=== PATIENT | female | born 1945 | race Caucasian/White ===

== ENCOUNTER → 2023-12-27 14:36 | Outpatient (REF) | payer OTHER, SELFPAY | LOC: WDC 14:36 | PROVIDERS: ATTENDING PHYSICIAN Family Medicine Geriatric Medicine; FAMILY PHYSICIAN Internal Medicine | DX: Z12.31 Encounter for screening mammogram for malignant neoplasm of breast (principal) | CPT/HCPCS: 77063; 77067 ==

== ENCOUNTER 2024-03-19 23:55 | Inpatient (IN) | payer OTHER, SELFPAY ==
[2024-03-19 22:03] VITALS: BP 148/96
[2024-03-19] MEDS: TYLENOL 650 MG PO (22:12)
[2024-03-19 22:20] VITALS: BMI 31.6
[2024-03-19 22:36] LABS: % Basophils 1.3 % (0-2); % Eosinophils 2.9 % (0-6); % Immature Granulocytes 0.5 % (0-0.5); % Lymphocytes 27.9 % (20.5-51.1); % Monocytes 7.3 % (1.7-9.3); % Neutrophils 60.1 % (42.2-75.2); Absolute Basophils 0.1 10^3/uL (0-0.2); Absolute Eosinophils 0.2 10^3/uL (0-0.7); Absolute Lymphocytes 2.1 10^3/uL (1.2-3.4); Absolute Monocytes 0.6 10^3/uL (0.1-0.6); Absolute Neutrophils 4.6 10^3/uL (1.4-6.5); Hematocrit 44.9 % (37.0-47.0); Hemoglobin 14.7 g/dL (12.0-16.0); Mean Corp Hgb Conc. 32.7 g/dL (33.0-37.0); Mean Corpuscular Hgb 28.6 pg (27.0-31.0); Mean Corpuscular Volume 87.4 fL (81.0-99.0); Mean Platelet Volume 10.1 fL (7.4-10.4); Nucleated Red Blood Cells % 0 %; Platelet Count 222 10^3/uL (130-400); Red Blood Cell Count 5.14 10^6/uL (4.20-5.40); Red Cell Dist. Width 14.6 % (11.5-14.5); White Blood Cell Count 7.7 10^3/uL (4.8-10.8)
--- NOTE | 2024-03-19 22:36 | ED.GENMED ---
History of Present Illness
<Tila Wills PA-C - Last Filed: 03/20/24 00:24>
General
Chief Complaint: Fall
Source: patient
Exam Limitations: none
Time Seen by Provider: 03/19/24 21:58
Nursing documentation reviewed up to this point in time: agreed with
History of Present Illness
History of Present Illness:
Patient is a 78-year-old female with history hypertension presenting to the emergency department via EMS with left hip pain after mechanical fall just prior to arrival. Patient states she was hanging a curtain when she missed the last 2 steps of a
ladder falling on her left side. Patient having significant pain in her left hip with any movement. There was no head strike or loss of consciousness. Patient has been unable to bear any weight since fall. Patient denies any pain in upper
extremities or right lower extremity. No numbness/tingling in left lower extremity. No headache or neck pain. No chest pain or shortness of breath
Patient on any blood thinners
Review of Systems
<Tila Wills PA-C - Last Filed: 03/20/24 00:24>
Review of Systems
Allergies reviewed?: Yes
All Other Systems: ROS reviewed and negative except as documented in HPI and ROS
Phy Exam
<Tila Wills PA-C - Last Filed: 03/20/24 00:24>
Physical Exam
Physical Exam:
Vitals: Hypertensive, mildly tachycardic. Afebrile
General: Patient is mildly uncomfortable due to pain. Nontoxic appearing
Skin: Warm and dry, no rashes or lesions
Head: Normocephalic, atraumatic
Eyes: Sclera nonicteric. EOMs intact. No nystagmus.
Throat: Protecting airway
Neck: Normal ROM, no cervical spine tenderness, no meningismus
Cardiac: Regular rate and rhythm, no murmurs.
Pulm: Normal respiratory effort, no wheezes, rales, rhonchi heard on exam.
Abdomen: No abdominal tenderness.
Extremities: Very minimal shortening of left lower extremity. Significant pain with internal/external rotation of left hip. Tenderness at left greater trochanter. Left ankle and left knee atraumatic and nontender with full range of motion. Cap
refill within normal limits. Sensation fully intact. Right lower extremity atraumatic and nontender with full range of motion.
Neuro: AAOx3. CN II-XII intact. No focal neurologic deficits.
Psychiatric: Normal affect.
Course
<Tila Wills PA-C - Last Filed: 03/20/24 00:24>
Orders/Labs/Results
Orders:
Orders
03/19/24 22:05
Electrocardiogram (*1) Urgent
Reason for Study: Other
Other Reason for Exam: fall
EKG- Treatment ONCE
Acetaminophen [Tylenol] 650 mg PO NOW STA
Hip, Left 2-3 Views [CR Hip - LT w/wo Pel 2-3 Vw*] Urgent
Comment:
Reason For Exam: fall, left hip pain
Include a pelvis x-ray?: Yes
03/19/24 22:24
Complete Blood Count/With Diff Urgent
Comprehensive Metabolic Panel Urgent
03/19/24 23:54
Admit/Transfer Patient As Directed
Co-Sign Provider:
Level of Care: Inpatient admission
Assign to:: Medical/Surgical
Physician / Group: hospitalist
Diagnosis: left hip fracture
Reason for Hospitalization: hospitalist
Expected length of stay greater than two midnights?: Yes
ELOS- Estimated Length of Stay in days: 2
I certify the patient meets the requirements for IP care: Yes
PRN Pain Medication Management As Directed
May give lesser potent ordered pain med per pt: Yes
preference::
Protocol:: Medication orders for pain may be administered in a
manner that supports deferring to patient preference
when the pt is:
- Requesting an ordered lesser potent pain medication.
Least to most potent pain medications are defined
as: acetaminophen < NSAID < tramadol < opioids
(morphine, oxycodone, hydromorphone).
- Requesting a lesser dose of the same medication IF
ORDERED.
- Requesting a less intrusive route of administration
if both routes are prescribed by the provider (PO <
IV).
03/19/24 23:55
Code Status As Directed
Resuscitation Status: Full Code
Abnormal Lab Results
03/19/24
22:24
MCHC 32.7 L g/dL
(33.0-37.0)
RDW 14.6 H %
(11.5-14.5)
Glucose 124 H mg/dl
(70-99)
AST 38 H U/L
(14-36)
Alkaline Phosphatase 127 H U/L
(38-126)
03/19/24 22:24
03/19/24 22:24
Vital Signs
Initial and Last Documented VS:
Initial Vital Signs
Temp Pulse Resp Pulse Ox
99.0 F 100 16 97
03/19/24 21:58 03/19/24 21:58 03/19/24 21:58 03/19/24 21:58
Last Documented Vital Signs
Temp Pulse Resp BP Pulse Ox
99.0 F 110 23 139/95 96
03/19/24 21:58 03/19/24 23:08 03/19/24 23:08 03/19/24 23:08 03/19/24 23:08
<Sameer Langley DO - Last Filed: 03/19/24 23:35>
Orders/Labs/Results
Orders:
Orders
03/19/24 22:05
Electrocardiogram (*1) Urgent
Reason for Study: Other
Other Reason for Exam: fall
EKG- Treatment ONCE
Acetaminophen [Tylenol] 650 mg PO NOW STA
Hip, Left 2-3 Views [CR Hip - LT w/wo Pel 2-3 Vw*] Urgent
Comment:
Reason For Exam: fall, left hip pain
Include a pelvis x-ray?: Yes
03/19/24 22:24
Complete Blood Count/With Diff Urgent
Comprehensive Metabolic Panel Urgent
03/19/24 23:54
Admit/Transfer Patient As Directed
Co-Sign Provider:
Level of Care: Inpatient admission
Assign to:: Medical/Surgical
Physician / Group: hospitalist
Diagnosis: left hip fracture
Reason for Hospitalization: hospitalist
Expected length of stay greater than two midnights?: Yes
ELOS- Estimated Length of Stay in days: 2
I certify the patient meets the requirements for IP care: Yes
PRN Pain Medication Management As Directed
May give lesser potent ordered pain med per pt: Yes
preference::
Protocol:: Medication orders for pain may be administered in a
manner that supports deferring to patient preference
when the pt is:
- Requesting an ordered lesser potent pain medication.
Least to most potent pain medications are defined
as: acetaminophen < NSAID < tramadol < opioids
(morphine, oxycodone, hydromorphone).
- Requesting a lesser dose of the same medication IF
ORDERED.
- Requesting a less intrusive route of administration
if both routes are prescribed by the provider (PO <
IV).
03/19/24 23:55
Code Status As Directed
Resuscitation Status: Full Code
Abnormal Lab Results
03/19/24
22:24
MCHC 32.7 L g/dL
(33.0-37.0)
RDW 14.6 H %
(11.5-14.5)
Glucose 124 H mg/dl
(70-99)
AST 38 H U/L
(14-36)
Alkaline Phosphatase 127 H U/L
(38-126)
03/19/24 22:24
03/19/24 22:24
Vital Signs
Initial and Last Documented VS:
Initial Vital Signs
Temp Pulse Resp Pulse Ox
99.0 F 100 16 97
03/19/24 21:58 03/19/24 21:58 03/19/24 21:58 03/19/24 21:58
Last Documented Vital Signs
Temp Pulse Resp BP Pulse Ox
99.0 F 110 23 139/95 96
03/19/24 21:58 03/19/24 23:08 03/19/24 23:08 03/19/24 23:08 03/19/24 23:08
<Tila Wills PA-C - Last Filed: 03/20/24 00:24>
MDM/Problems Addressed
Differential Diagnosis Includes:
Not limited to: Hip fracture, hip contusion, pelvic fracture, etc.
MDM/Problems Addressed:
79-year-old female with left hip fracture following mechanical fall 1 hour [employer]. No head strike or loss of conscious. No other injury sustained. Patient mildly hypertensive, tachycardic otherwise stable vital signs. Patient afebrile. Physical
exam as above. No evidence of head or neck trauma. Pain with internal/external rotation of left hip with tenderness at left greater trochanter. Left lower extremity neurovascularly intact. No evidence of other extremity traumatic injury. X-ray
of left hip obtained which shows a nondisplaced intertrochanteric fracture of left proximal femur. Discussed with orthopedics. Patient not on thinners. Patient will be admitted to the hospitalist for likely OR tomorrow. Patient excepted to
hospitalist service in stable condition.
Chronic conditions affecting care:
Hypertension
Acute Exacerbation and/or Progression of Chronic Illness:
Acutely hypertensive
<Tila Wills PA-C - Last Filed: 03/20/24 00:24>
*Radiology
Radiology exam reviewed: preliminary read by ED provider (X-ray reviewed by me-intertrochanteric fracture of left femur) and radiology read reviewed
*Pulse Oximetry
Patient hypoxic: no
*EKG
Interpreted by ED Provider?: Yes
Interpretation: abnormal
Comparison EKG: changes noted
Heart Rate: 101
Rate: tachycardiac
Rhythm: sinus
Interval: normal QT interval
Ischemia: non-specific ST changes
*[place]lower Interpretation
Rate: Snow Blower- N/A
*Critical Care Note
Total Time (30-74mins, 75-104mins- exclusive of procedures): Not Applicable
<Tila Wills PA-C - Last Filed: 03/20/24 00:24>
Patient Management
Discussion with other providers: Hospitalist and Human Resources Partner (Orthopedics)
Escalation/DeEscalation of care consider admission/obs:
Admit indicated�plan likely OR tomorrow
ED Attending Note
<Tila Wills PA-C - Last Filed: 03/20/24 00:24>
-
Portions of this chart may have been created with voice recognition software.� Occasional wrong word or��sound alike� substitutions may have occurred due to the inherent limitations of voice recognition software.
<Sameer Langley DO - Last Filed: 03/19/24 23:35>
ED Attending Note
Patient seen and examined by attending physician: Yes
I performed the substantive portion of visit, reviewed & personally made and approve the management plan that is documented in note by myself or AMI.: Yes
ED Attending Note:
Left inter-troch fracture. Admit. Good perfusion
Discharge Plan
Departure
Patient Disposition: Admit
Date of Disposition: 03/19/24
Time of Disposition: 23:35
Presentation/result/management discussed w/ accepting MD/DO: Hospitalist
Patient with high blood pressure during this ER visit?: Yes
Condition: Good
Covid-19: Not Applicable
Discharge Problem:
Closed intertrochanteric fracture of left hip
Prescriptions:
No Action
glucosamine sulfate [Glucosamine] 500 mg Tablet
500 mg PO DAILY
Theragen Tablet
1 tab PO DAILY
amlodipine 5 mg Tablet
5 mg PO DAILY
cholecalciferol (vitamin D3) [Vitamin D3] 25 mcg (1,000 unit) Tablet
25 mcg PO DAILY
Referrals:
Violeta Guajardo MD [Family Provider] -
Discharge Date and Time
Print Language: BULGARIAN
[2024-03-19 22:54] LABS: ALT (SGPT) 26 U/L (0-35); AST (SGOT) 38 U/L (14-36); Albumin 4.7 g/dl (3.5-5.0); Alkaline Phosphatase 127 U/L (38-126); Blood Urea Nitrogen 13 mg/dl (7-17); Calcium 9.1 mg/dl (8.4-10.2); Carbon Dioxide 22 mmol/L (22-30); Chloride 103 mmol/L (98-107); Estimated Creatinine Clearance 79 ml/min; Glucose 124 mg/dl (70-99); Potassium 4.5 mmol/L (3.5-5.1); Sodium 137 mmol/L (135-145); Total Bilirubin 0.5 mg/dl (0.2-1.3); Total Protein 7.8 g/dl (6.3-8.2); eGFR > 60.00
[2024-03-19 23:08] VITALS: BP 139/95
--- NOTE | 2024-03-19 23:58 | HPS.HSE ---
Family Physician
-
Family Physician: Violeta Guajardo
Chief Complaint
-
Fall
History of Present Illness
This is a 78-year-old female with past medical history only significant for hypertension presents to the emergency department after suffering a fall with left hip pain.
Patient reported that she was coming down a ladder when she misjudged the last rung of the ladder and stepped out falling to the floor on the left side. She had significant pain immediately and was unable to move her hip. She denies striking her
head. She denied any other recent falls. Patient denies any difficulty with ambulation at baseline. She has not been able to bear weight since the fall earlier today. She denies any numbness or tingling in the lower extremities. She denies any
urinary symptoms. She called EMS and was brought to the emergent department.
In the emergency department she was afebrile, blood pressure was 130/90 with a pulse of 110 satting 98% on room air. CBC was unremarkable. Electrolytes BUN/creatinine were also unremarkable. Hip x-ray shows a left intertrochanteric displaced
fracture.
Medical History
Past Medical History
Past Medical History: Reports Cancer (Right breast cancer status post left lumpectomy) and HTN
Past Surgical History: Reports Other (Right breast cancer status postlumpectomy, right breast cyst removal)
Social History
Tobacco: Former Smoker
Alcohol: Occasional
Drug: None
Personal:
Living: With Family
Family History
Family History: Not pertinent
Allergies / Home Medications
Allergies reflects when Allergies were last updated in [facility].
Home Medications with original date entered in [facility]
Allergy/Medication List:
Allergies
Allergy/AdvReac Type Severity Reaction Status Date / Time
No Known Allergies Allergy Verified 03/19/24 22:15
Home Medications
amlodipine 5 mg tablet 5 mg PO DAILY 03/19/24
cholecalciferol (vitamin D3) 25 mcg (1,000 unit) tablet (Vitamin D3) 25 mcg PO DAILY 03/19/24
glucosamine sulfate 500 mg tablet (Glucosamine) 500 mg PO DAILY 03/19/24
therapeutic multivitamin 1 tab PO DAILY 03/19/24
Review of Systems
-
History Source: Patient
Constitutional: Reports No Symptoms
EENT: Reports No Symptoms
Respiratory: Reports No Symptoms
Cardiac: Reports No Symptoms
Abdomen/GI: Reports No Symptoms
: Reports No Symptoms
Musculoskeletal: Reports Joint Pain
Skin: Reports No Symptoms
Neurological: Reports No Symptoms
Endocrine: Reports No Symptoms
Hematologic/Lymphatic: Reports No Symptoms
Psych: Reports No Symptoms
Physical Exam
Vital Signs
Vital Signs
Temp Pulse Resp BP Pulse Ox
99.0 F 110 23 139/95 96
03/19/24 21:58 03/19/24 23:08 03/19/24 23:08 03/19/24 23:08 03/19/24 23:08
Physical Exam
General: Well Developed, Well Nourished, No Apparent Distress and Conversant
HEENT: NormoCephalic, Anicteric, Moist mucous membranes and Atraumatic
Respiratory: Clear
Cardiac: S1/S2 and Tachycardia
Breast: Deferred by me
GI: Soft, Non Tender, Non Distended and No Hepatosplenomegaly
Rectal: Deferred by Provider
Genito-urinary: Deferred by me
Musculoskeletal: No Clubbing, No Cyanosis and No Edema
Skin: Warm
Neuro: AO x 3 and Nonfocal/grossly intact
Hematologic/Lymphatic: No Lymphadenopathy
Psych: Calm
Laboratory Results
-
03/19/24 22:24
03/19/24 22:24
Laboratory Results
Total Bilirubin 0.5 mg/dl (0.2-1.3) 03/19/24 22:24
AST 38 U/L (14-36) H 03/19/24 22:24
ALT 26 U/L (0-35) 03/19/24 22:24
Alkaline Phosphatase 127 U/L (38-126) H 03/19/24 22:24
Data Reviewed
-
Diagnostic Radiology: Image Personally Visualized and interpreted and Report Reviewed by me
Lab Data: Labs Reviewed by me
Old Records: Reviewed
Impression/Plan
-
IMPRESSION:
Generally healthy 78-year-old female with past medical history of hypertension on amlodipine presents to the Emergency Department following a mechanical fall where she fell from the second rung of the ladder and suffered a left hip intertrochanteric
fracture.
PLAN:
Left Hip Fracture
- admit to med/surg
- NPO after midnight
- LR for now
- pain control and antiemetics
- PT OT
- ortho consult
HTN
- stable, continue amlodipine
DVT PPX - lovenox sq
Code status - full code
[2024-03-20] VITALS (11 sets, daily range): BP systolic 102–149; BP diastolic 67–93
[2024-03-20] MEDS: LR 500 IV (01:18)
[2024-03-20] MEDS: DILAUDID 0.25 MG IV (01:18)
[2024-03-20] MEDS: TYLENOL PO (01:19)
[2024-03-20] MEDS: COLACE PO ×2 (01:27→08:51)
[2024-03-20] MEDS: SENOKOT PO ×2 (01:27→08:51)
--- NOTE | 2024-03-20 01:33 | PTCARENOTE ---
Received pt from ED into room 2124. Pulled over to bed with assist x4. AAOx3. VSS. Complains of 8/10 L hip pain after movement. PRN pain medication administered, see APR. Pt resting comfortably in bed, no complaints at this time.
[2024-03-20] MEDS: TYLENOL 650 MG PO ×6 (03:34→23:17)
--- NOTE | 2024-03-20 06:31 | W.PN.UPDATE ---
Update Note
Progress Note Update
Full orthopedic consult dictated:
Dx: Left hip intertrochanteric fracture
Plan: ORIF left hip later today. NPO and ancef cutting and boning supervisor to OR. Hold Lovenox-foot pumps and ASA post-op. CBC this am and type & screen.
[2024-03-20 07:48] LABS: Hematocrit 43.9 % (37.0-47.0); Hemoglobin 14.5 g/dL (12.0-16.0); Mean Corpuscular Hgb 28.4 pg (27.0-31.0); Mean Corpuscular Volume 85.9 fL (81.0-99.0); Mean Platelet Volume 10.7 fL (7.4-10.4); Platelet Count 205 10^3/uL (130-400); Red Blood Cell Count 5.11 10^6/uL (4.20-5.40); Red Cell Dist. Width 14.4 % (11.5-14.5); White Blood Cell Count 12.4 10^3/uL (4.8-10.8)
[2024-03-20] MEDS: DILAUDID 0.5 MG IV ×2 (08:50→21:33)
[2024-03-20] MEDS: NORVASC 5 MG PO (08:50)
--- NOTE | 2024-03-20 11:34 | W.PN.HOSP.TC ---
Today's Communication/Plan
-
OR with orthopedics today
N.p.o. until after procedure
Nonweightbearing for now
As needed analgesia
Trend CBC
Assessment / Plan
Assessment / Plan
#Left intertrochanteric hip fracture
#Mechanical fall off a ladder
-Had mechanical fall while using ladder, fell onto hip and could not Ambulate
-X-ray here with evidence of left intertrochanteric fracture of the femur
-Evaluated by orthopedics today, plan for OR this afternoon
-Maintain n.p.o. status pending OR
-As needed analgesia, increased Dilaudid to 0.5
-Plan for aspirin full dose for 6 weeks as DVT prophylaxis
-Nonweightbearing now, per Ortho after OR today
-Trend CBC
#HTN
-No history of hypertensive systemic
-Home medications include amlodipine
-Blood pressure well-controlled despite
#Leukocytosis
-Reactive secondary to hip fracture
-Trend CBC and temperature curve
-No antibiotics for now
DVT prophylaxis: Plan for aspirin after procedure
Diet: N.p.o., regular after procedure today
CODE STATUS: Full code
Anticipated Discharge: > 48 hours
Subjective/Interval History
-
Date of Service: March 20, 2024
Seen and examined at the bedside. No acute events reported overnight. AFVSS
She did have pain this morning that was not responding to 0.25 Dilaudid, increased to 0.5 which helped
Plan for operating room later today. Denies any new complaints as of this morning
Objective Data
-
Labs:
Laboratory Results
03/20/24
07:35
WBC 12.4 H
Hgb 14.5
Hct 43.9
Plt Count 205
Vital Signs:
Vital Signs
Temp Pulse Resp BP Pulse Ox
98.1 F 106 16 135/90 96
03/20/24 07:50 03/20/24 08:50 03/20/24 07:50 03/20/24 08:50 03/20/24 10:56
I&O
03/19/24 03/20/24 03/21/24
06:59 06:59 06:59
Intake Total 60 / 60
Output Total 1250 / 1250
Balance -1190 / -1190
Review of Systems
-
History Source: Patient
All other systems: Reviewed and negative
Physical Exam
-
General: Well Developed, No Apparent Distress, Comfortable and Obese
HEENT: Normocephalic, Atraumatic and Moist Mucous Membranes
Respiratory: Clear to Auscultation and Non Labored Respirations
Cardiac: Regular Rhythm and S1/S2; Negative Murmur, Rub or Gallop
GI: Soft, Nontender, Nondistended and Normal Bowel Sounds
Musculoskeletal: No Clubbing, No Cyanosis, No Edema and Other (Externally rotated left, tenderness to left hip palpation)
Skin: Warm and Dry; Negative Rash
Neuro: AO x 3 and Nonfocal/Grossly Intact
Psych: Calm
Data Reviewed
-
Labs: Labs Reviewed by me, Discussed with Physician (Orthopedist) and Discussed with Patient
--- NOTE | 2024-03-20 14:12 | PTCARENOTE ---
Patient to OR for L hip ORIF. Chart given to transport, pre procedure ancef tubed to OR from pharmacy. CHG wipe bath provided, patient transported in bed.
--- NOTE | 2024-03-20 17:08 | CM ---
Patient went to OR
IA obtained by spouse
Dx: L hip fx
PMH: Right breast cancer lumpectomy, treated with radiation, HTN
Patient lives in a 2 story home with , 2 steps to enter, flight to 2nd floor
PLOF: Independent
spouse denies DME
denies HH/Rehab
denies insecurities
PT/OT evals
PCP: Violeta Waddell
Pharmacy: [facility]
PLAN: Await PT/OT post op
[2024-03-20] MEDS: MORPHINE SULFATE 1 MG IV (17:47)
--- NOTE | 2024-03-20 18:27 | PTCARENOTE ---
Received patient from PACU via bed. Pt AAOX3. Pox: 94% RA. Family at bedside. Call keyes within reach. Plan of care ongoing.
[2024-03-20] MEDS: ASPIRIN 325 MG PO (18:38)
[2024-03-20] MEDS: SENOKOT 17.2 MG PO (20:06)
[2024-03-20] MEDS: COLACE 100 MG PO (20:07)
[2024-03-20] MEDS: ANCEF 5 IV (21:29)
[2024-03-21 02:56] VITALS: BP 110/75
[2024-03-21] MEDS: TYLENOL 650 MG PO ×5 (04:04→20:22)
[2024-03-21] MEDS: ANCEF 5 IV (05:40)
[2024-03-21 06:23] LABS: % Basophils 0.1 % (0-2); % Immature Granulocytes 0.4 % (0-0.5); % Monocytes 4.5 % (1.7-9.3); Absolute Immature Granulocytes 0.1 10^3/uL (0-0.05); Absolute Lymphocytes 0.8 10^3/uL (1.2-3.4); Absolute Monocytes 0.5 10^3/uL (0.1-0.6); Absolute Neutrophils 10.4 10^3/uL (1.4-6.5); Hemoglobin 13.1 g/dL (12.0-16.0); Mean Corp Hgb Conc. 32.8 g/dL (33.0-37.0); Mean Corpuscular Hgb 28.6 pg (27.0-31.0); Mean Corpuscular Volume 87.3 fL (81.0-99.0); Mean Platelet Volume 11.1 fL (7.4-10.4); Nucleated Red Blood Cells % 0 %; Platelet Count 195 10^3/uL (130-400); Red Blood Cell Count 4.58 10^6/uL (4.20-5.40); Red Cell Dist. Width 14.6 % (11.5-14.5); White Blood Cell Count 11.8 10^3/uL (4.8-10.8)
--- NOTE | 2024-03-21 06:28 | W.PN.ORTHO ---
Today's Communication / Plan
-
79-year-old female POD #1 Left Hip Gamma Nail 03/20/[address] Molina.
- WBAT LLE with use of walker for assistance.
- PT/OT.
- Aspirin 325mg once daily x 4 weeks for DVT Prophylaxis.
- Hgb this AM 13.1. Continue to monitor and trend.
- CM regarding D/C planning.
- Dressings intact for 7-10 days post-op. [place]ay removed at 2 weeks post-op.
- Orthopedic surgery will continue to follow.
Assessment
.
Distal Motor Intact: Yes
Dressing:
Aquacel dressing x 3 clean, dry and intact.
Calf is soft and nontender to palpation.
Able to plantarflex and dorsiflex left ankle.
NVI distally.
Assessment:
POD #1 Left Hip Gamma Nail 03/20/[address] Molina.
Plan
.
Surgery / Date: 03/20/2024
DVT Prophylaxis: Aspirin
Activity:
Out of bed.
PT/OT.
WBAT LLE with use of walker for assistance.
Discharge Plan: Other
Discharge Information:
Appreciate CM.
Subjective
.
.:
Patient resting comfortably. Reports some soreness about her left hip, otherwise has no acute complaints or concerns at this time.
Vital Signs and Labs
.
Vital Signs and Labs:
Lab Results
03/21/24 04:50
Temp Pulse Resp BP Pulse Ox
98.1 F 103 16 110/75 96
03/21/24 02:56 03/21/24 02:56 03/21/24 02:56 03/21/24 02:56 03/21/24 02:56
[2024-03-21 06:52] LABS: Blood Urea Nitrogen 16 mg/dl (7-17); Calcium 8.9 mg/dl (8.4-10.2); Carbon Dioxide 23 mmol/L (22-30); Chloride 102 mmol/L (98-107); Estimated Creatinine Clearance 76 ml/min; Glucose 135 mg/dl (70-99); Sodium 138 mmol/L (135-145); eGFR > 60.00
[2024-03-21 07:04] VITALS: BP 132/81
[2024-03-21] MEDS: ASPIRIN 325 MG PO (09:37)
[2024-03-21] MEDS: SENOKOT 17.2 MG PO (09:37)
[2024-03-21] MEDS: NORVASC 5 MG PO (09:37)
[2024-03-21] MEDS: COLACE 100 MG PO (09:37)
[2024-03-21] MEDS: ROXICODONE 5 MG PO (09:40)
[2024-03-21 11:00] VITALS: BP 121/78; PULSE 94; O2SAT 96
--- NOTE | 2024-03-21 11:30 | W.PN.HOSP.TC ---
Addendum entered and electronically signed by Zoltan Albarado DO 03/21/24 15:49:
CDI: Bone demineralization on imaging likely reflective of her known osteoporosis. Would not qualify her hip fracture as an pathognomonic fracture as she fell off of a ladder and this injury may have caused a fractured hip and a percent with normal
bone mineral density, though risk is higher due to her osteoporosis.
Original Note:
Today's Communication/Plan
-
PT/OT
Analgesia
SNF placement
Assessment / Plan
Assessment / Plan
#Left intertrochanteric hip fracture
#Mechanical fall off a ladder
-Had mechanical fall while using ladder, fell onto hip and could not Ambulate
-X-ray here with evidence of left intertrochanteric fracture of the femur
-POD #1 from left hip gamma nail placement
-Continue with as needed analgesics
-Aspirin full dose for 6 weeks as DVT prophylaxis
-WBAT with assistance, PT/OT
#HTN
-No history of hypertensive systemic
-Home medications include amlodipine
-Blood pressure well-controlled despite
#Leukocytosis
-Reactive secondary to hip fracture
-Trend CBC and temperature curve
-No antibiotics for now
DVT prophylaxis: Full dose aspirin
Diet: Regular
CODE STATUS: Full code
Anticipated Discharge: Within 24 hours
Subjective/Interval History
-
Date of Service: March 21, 2024
Seen and examined at the bedside. No acute events reported overnight. AFVSS this morning
CBC stable. Patient states she has minimal pain in the hip at rest, some discomfort with ambulation
Denies any new complaints
Objective Data
-
Labs:
Laboratory Results
03/21/24
04:50
WBC 11.8 H
Hgb 13.1
Hct 40.0
Plt Count 195
Sodium 138
Potassium 5.0
Chloride 102
Carbon Dioxide 23
BUN 16
Creatinine 0.6
Glucose 135 H
Calcium 8.9
Vital Signs:
Vital Signs
Temp Pulse Resp BP Pulse Ox
97.8 F 96 18 132/81 93
03/21/24 07:04 03/21/24 07:04 03/21/24 07:04 03/21/24 07:04 03/21/24 07:04
I&O
03/20/24 03/21/24 03/22/24
06:59 06:59 06:59
Intake Total 60 / 60 600 / 600
Output Total 1250 / 1250
Balance -1190 / -1190 600 / 600
Review of Systems
-
History Source: Patient
All other systems: Reviewed and negative
Physical Exam
-
General: Well Developed, No Apparent Distress and Comfortable
HEENT: Normocephalic, Atraumatic, Moist Mucous Membranes and Anicteric
Respiratory: Clear to Auscultation and Non Labored Respirations
Cardiac: Regular Rhythm and S1/S2; Negative Murmur
GI: Soft, Nontender, Nondistended and Normal Bowel Sounds
Musculoskeletal: No Clubbing, No Cyanosis, No Edema and Other (Mild tenderness to palpation)
Skin: Warm, Dry and Normal Turgor; Negative Rash
Neuro: AO x 3 and Nonfocal/Grossly Intact
Psych: Calm
Data Reviewed
-
Labs: Labs Reviewed by me, Discussed with Physician (Orthopedics) and Discussed with Patient
[2024-03-21 14:07] VITALS: BP 121/78; PULSE 82; O2SAT 94
--- NOTE | 2024-03-21 15:25 | CM ---
Chart reviewed and met with pt
PT - recs - SNF vs HH
Discussed with pt - would prefer home with VN - unsure
Given PAC list for SNF options. Reports no preference for VN
Plan - anticipate home with HH vs SNF when medically ready
--- NOTE | 2024-03-21 15:33 | PN.CDI ---
CDI
- -
CDI:
Physician Documentation Request
Admit Date: 03/19/24 23:55
Dear Doctor Per,
Patient sustained left intertrochanteric hip fracture after mechanical fall off a ladder.
03/19 left hip xray impression includes 'Diffuse bone demineralization'
Please provide further specificity regarding the diagnosis of fracture:
Etiology
Traumatic
Pathologic due to osteoporosis
Pathologic due to other disease (please specify)
Due to a combination of trauma and a pathological process
but the trauma alone would not likely have been sufficient
to cause the fracture
Use of terms such as suspected, likely, concern for, or probable (associated with a specific diagnosis that is being evaluated, monitored, or treated as if it exists) are acceptable and can be coded in the inpatient setting, when documented at the
time of discharge.
Thank you,
Gaviota Estes RN, BSN
CDI Specialist
tiger text
Please use your independent medical judgment in providing your response.
[2024-03-21 15:43] VITALS: BP 115/68
[2024-03-21] MEDS: COLACE PO (20:29)
[2024-03-21] MEDS: SENOKOT PO (20:29)
[2024-03-21 23:10] VITALS: BP 154/79
[2024-03-22] MEDS: TYLENOL PO (00:31)
[2024-03-22] MEDS: ROXICODONE 5 MG PO ×2 (03:13→21:45)
[2024-03-22] MEDS: TYLENOL 650 MG PO ×5 (03:13→19:47)
[2024-03-22 06:36] LABS: % Basophils 0.3 % (0-2); % Eosinophils 0.6 % (0-6); % Immature Granulocytes 0.4 % (0-0.5); % Lymphocytes 19.9 % (20.5-51.1); % Monocytes 9.1 % (1.7-9.3); % Neutrophils 69.7 % (42.2-75.2); Absolute Eosinophils 0.1 10^3/uL (0-0.7); Absolute Immature Granulocytes 0.1 10^3/uL (0-0.05); Absolute Lymphocytes 2.3 10^3/uL (1.2-3.4); Absolute Monocytes 1.1 10^3/uL (0.1-0.6); Absolute Neutrophils 8.1 10^3/uL (1.4-6.5); Hemoglobin 11.8 g/dL (12.0-16.0); Mean Corp Hgb Conc. 32.8 g/dL (33.0-37.0); Mean Corpuscular Hgb 28.2 pg (27.0-31.0); Mean Corpuscular Volume 86.1 fL (81.0-99.0); Mean Platelet Volume 10.8 fL (7.4-10.4); Nucleated Red Blood Cells % 0 %; Platelet Count 190 10^3/uL (130-400); Red Blood Cell Count 4.18 10^6/uL (4.20-5.40); Red Cell Dist. Width 14.8 % (11.5-14.5); White Blood Cell Count 11.7 10^3/uL (4.8-10.8)
[2024-03-22 06:55] LABS: Blood Urea Nitrogen 22 mg/dl (7-17); Calcium 8.4 mg/dl (8.4-10.2); Carbon Dioxide 27 mmol/L (22-30); Chloride 103 mmol/L (98-107); Estimated Creatinine Clearance 76 ml/min; Glucose 107 mg/dl (70-99); Potassium 4.2 mmol/L (3.5-5.1); Sodium 137 mmol/L (135-145); eGFR > 60.00
[2024-03-22 07:39] VITALS: BP 121/80
[2024-03-22] MEDS: ASPIRIN 325 MG PO (08:48)
[2024-03-22] MEDS: COLACE PO ×3 (08:48→19:51)
[2024-03-22] MEDS: SENOKOT PO ×3 (08:49→19:51)
[2024-03-22] MEDS: NORVASC 5 MG PO (08:49)
--- NOTE | 2024-03-22 11:04 | W.PN.ORTHO ---
Today's Communication / Plan
-
79-year-old female POD #2 Left Hip Gamma Nail 03/20/[address] Molina.
- WBAT LLE with use of walker for assistance.
- PT/OT.
- Aspirin 325mg once daily x 4 weeks for DVT Prophylaxis.
- CM regarding D/C planning. Considering rehab today as pain has increased.
- Dressings intact for 7-10 days post-op. [place] removed at 2 weeks post-op. Repeat x-ray in 4 weeks.
- Orthopedic surgery will continue to follow.
Assessment
.
Distal Motor Intact: Yes
Dressing:
Clean, dry and intact.
Assessment:
79-year-old female POD #2 Left Hip Gamma Nail 03/20/[address] Molina.
- WBAT LLE with use of walker for assistance.
- PT/OT.
- Aspirin 325mg once daily x 4 weeks for DVT Prophylaxis.
- CM regarding D/C planning. Considering rehab today as pain has increased.
- Dressings intact for 7-10 days post-op. [place] removed at 2 weeks post-op. Repeat x-ray in 4 weeks.
- Orthopedic surgery will continue to follow.
Plan
.
Surgery / Date: 03/20/2024
DVT Prophylaxis: Aspirin
Activity:
Out of bed.
PT/OT
Subjective
.
.:
Patient resting comfortably in bed. C/o more pain today than yesterday. Reports she only walked to the bathroom with PT yesterday, but otherwise has not done much walking.
Vital Signs and Labs
.
Vital Signs and Labs:
Lab Results
03/22/24 05:46
03/22/24 05:46
Temp Pulse Resp BP Pulse Ox
98.4 F 96 18 121/80 96
03/22/24 07:39 03/22/24 08:49 03/22/24 07:39 03/22/24 08:49 03/22/24 07:39
Physical Exam
-
Left hip/thigh: Dressings intact with minimal drainage. Mild diffuse swelling, ecchymosis about middle incision. ROM hip without pain. Calf soft and nontender to palpation. N/v intact distally.
--- NOTE | 2024-03-22 11:37 | W.PN.HOSP.TC ---
Today's Communication/Plan
-
Discharge planning
As needed analgesics
Full dose aspirin for DVT prophylaxis
Continue PT
Assessment / Plan
Assessment / Plan
#Left intertrochanteric hip fracture
#Mechanical fall off a ladder
-Had mechanical fall while using ladder, fell onto hip and could not Ambulate
-X-ray here with evidence of left intertrochanteric fracture of the femur
-POD #2 from left hip gamma nail placement
-Continue with as needed analgesics
-Aspirin full dose for 6 weeks as DVT prophylaxis
-WBAT with assistance, PT/OT
-SNF planning
#HTN
-No history of hypertensive systemic
-Home medications include amlodipine
-Blood pressure well-controlled despite
#Leukocytosis
-Reactive secondary to hip fracture
-Trend CBC and temperature curve
-No antibiotics for now
DVT prophylaxis: Full dose aspirin
Diet: Regular
CODE STATUS: Full code
Anticipated Discharge: 24 - 48 hours
Subjective/Interval History
-
Date of Service: March 22, 2024
Seen and examined at the bedside. No acute events overnight. AFVSS this morning
PT recommended home versus SNF. Patient states she would prefer SNF placement if an acceptable facility is available
Denies any new complaints. Pain currently well-controlled
Objective Data
-
Labs:
Laboratory Results
03/22/24
05:46
WBC 11.7 H
Hgb 11.8 L
Hct 36.0 L
Plt Count 190
Sodium 137
Potassium 4.2
Chloride 103
Carbon Dioxide 27
BUN 22 H
Creatinine 0.6
Glucose 107 H
Calcium 8.4
Vital Signs:
Vital Signs
Temp Pulse Resp BP Pulse Ox
98.4 F 96 18 121/80 96
03/22/24 07:39 03/22/24 08:49 03/22/24 07:39 03/22/24 08:49 03/22/24 07:39
I&O
03/21/24 03/22/24 03/23/24
06:59 06:59 06:59
Intake Total 600 / 600 840 / 840
Balance 600 / 600 840 / 840
Review of Systems
-
History Source: Patient
All other systems: Reviewed and negative
Physical Exam
-
General: Well Developed, Well Nourished, No Apparent Distress and Comfortable
HEENT: Normocephalic, Atraumatic and Moist Mucous Membranes
Respiratory: Clear to Auscultation and Non Labored Respirations
Cardiac: Regular Rhythm and S1/S2; Negative Murmur, Rub or Gallop
GI: Soft, Nontender, Nondistended and Normal Bowel Sounds
Musculoskeletal: No Clubbing, No Cyanosis and No Edema
Skin: Warm, Dry and Normal Turgor; Negative Rash
Neuro: AO x 3 and Nonfocal/Grossly Intact
Psych: Calm
Data Reviewed
-
Labs: Labs Reviewed by me
[2024-03-22 15:21] VITALS: BP 110/70
--- NOTE | 2024-03-22 16:18 | CM ---
Reviewed the chart notes and spoke with the patient at the bedside. IMM reviewed. Patient plans on discharging to home with VN services. Referral sent via [facility]. CM continues to be available to patient/family and is monitoring medical
plan for needs at discharge.
Plan: Discharge to home with VN services when medically stable.
[2024-03-22 23:30] VITALS: BP 109/72
[2024-03-23] MEDS: TYLENOL PO ×2 (00:35→04:36)
[2024-03-23 07:25] VITALS: BP 138/84
--- NOTE | 2024-03-23 07:50 | W.PN.ORTHO ---
Today's Communication / Plan
-
79-year-old female POD #3 Left Hip Gamma Nail 03/20/[address] Molina.
- WBAT LLE with use of walker for assistance.
- PT/OT.
- Aspirin 325mg once daily x 4 weeks for DVT Prophylaxis.
- CM regarding D/C planning. Would like to go home with home care when medically stable.
- Dressings intact for 7-10 days post-op. Jen[place] removed at 2 weeks post-op. Repeat x-ray in 4 weeks.
- Orthopedic surgery will sign off for now. Please re-engage with any further questions/concerns.
Assessment
.
Distal Motor Intact: Yes
Dressing:
Clean, dry and intact.
Assessment:
79-year-old female POD #3 Left Hip Gamma Nail 03/20/[address] Molina.
- WBAT LLE with use of walker for assistance.
- PT/OT.
- Aspirin 325mg once daily x 4 weeks for DVT Prophylaxis.
- CM regarding D/C planning. Would like to go home with home care when medically stable.
- Dressings intact for 7-10 days post-op. [place] removed at 2 weeks post-op. Repeat x-ray in 4 weeks.
- Orthopedic surgery will sign off for now. Please re-engage with any further questions/concerns.
Plan
.
Surgery / Date: 03/20/2024
Activity:
Out of bed.
PT/OT
Discharge Plan: Home w/ VN
Subjective
.
.:
Patient resting comfortably in bed. Did well with PT yesterday and they think she would do well at home with home care.
Vital Signs and Labs
.
Vital Signs and Labs:
Lab Results
03/22/24 05:46
03/22/24 05:46
Temp Pulse Resp BP Pulse Ox
98.1 F 96 16 109/72 92
01/25/25 23:30 03/22/24 23:30 03/22/24 23:30 03/22/24 23:30 03/22/24 23:30
Physical Exam
-
Left hip: dressings intact. Mild drainage. ROM hip with mild discomfort. Calf is soft and non tender to palpation. N/v intact distally.
[2024-03-23] MEDS: SENOKOT PO ×2 (08:36→08:41)
[2024-03-23] MEDS: COLACE 100 MG PO (08:36)
[2024-03-23] MEDS: TYLENOL 650 MG PO ×2 (08:36→11:58)
[2024-03-23] MEDS: ASPIRIN 325 MG PO (08:36)
[2024-03-23] MEDS: NORVASC 5 MG PO (08:37)
--- NOTE | 2024-03-23 10:32 | W.PN.HOSP.TC ---
Today's Communication/Plan
-
Discharge home
Assessment / Plan
Assessment / Plan
#Left intertrochanteric hip fracture
#Mechanical fall off a ladder
-Had mechanical fall while using ladder, fell onto hip and could not Ambulate
-X-ray here with evidence of left intertrochanteric fracture of the femur
-POD #2 from left hip gamma nail placement
-Continue with as needed analgesics
-Aspirin full dose for 6 weeks as DVT prophylaxis
-WBAT with assistance, PT/OT
-Follow-up in office with orthopedics
#HTN
-No history of hypertensive systemic
-Home medications include amlodipine
-Blood pressure well-controlled despite
#Leukocytosis
-Reactive secondary to hip fracture
-Trend CBC and temperature curve
-No antibiotics for now
DVT prophylaxis: Full dose aspirin
Diet: Regular
CODE STATUS: Full code
>30 minutes required for discharge process and planning
Anticipated Discharge: Today
Subjective/Interval History
-
Date of Service: March 23, 2024
Seen and examined at the bedside. No acute events reported overnight. AFVSS this morning
Patient has decided that she would prefer home with PT and VN
No new complaints today
Objective Data
-
Vital Signs:
Vital Signs
Temp Pulse Resp BP Pulse Ox
98.6 F 101 16 138/84 96
03/23/24 07:25 03/23/24 08:37 03/23/24 07:25 03/23/24 08:37 03/23/24 07:25
I&O
03/22/24 03/23/24 03/24/24
06:59 06:59 06:59
Intake Total 840 / 840 1000 / 1000
Balance 840 / 840 1000 / 1000
Review of Systems
-
History Source: Patient
All other systems: Reviewed and negative
Physical Exam
-
General: Well Developed, Well Nourished and No Apparent Distress
HEENT: Normocephalic, Atraumatic and Moist Mucous Membranes
Respiratory: Clear to Auscultation and Non Labored Respirations
Cardiac: Regular Rhythm, S1/S2 and Murmur
GI: Soft, Nontender, Nondistended and Normal Bowel Sounds
Musculoskeletal: No Clubbing, No Cyanosis and No Edema
Skin: Warm, Dry and Normal Turgor; Negative Rash
Neuro: AO x 3 and Nonfocal/Grossly Intact
Psych: Calm
--- NOTE | 2024-03-23 11:08 | CM ---
Reviewed the chart notes. Patient for discharge to home today with [facility] services.
[2024-03-23 11:33] VITALS: BP 115/66; PULSE 111; O2SAT 95
[2024-03-23 13:20] VITALS: BP 115/69
--- NOTE | 2024-03-23 16:14 | W.DCSUMMARY ---
Discharge Summary
Discharge Data
Date of Admission: 03/19/24
Date of Discharge: 03/23/24
-
Pending Results: No
Hospital Course
79-year-old female with hypertension and history of right-sided breast cancer s/p lumpectomy that presented to the hospital after falling off a ladder at home. Found to have a left-sided intertrochanteric femur fracture. Evaluated by orthopedics
who recommended gamma nail placement. Successful orthopedic repair. Blood counts stable after the OR. Was started on aspirin 325 mg for DVT prophylaxis after hip fracture, should be continued for 4 weeks total. Worked with physical therapy and
was recommended home care with outpatient physical therapy. Recommended to follow-up with orthopedist for removal of estela 2 weeks after procedure. Will also need repeat x-ray with orthopedics in their office. Should follow-up with family
provider within 1 to 2 weeks of discharge from hospital
Discharge Plan
-
Patient Disposition: Home (Routine Discharge)
Discharge Diagnosis/Procedures: Left intertrochanteric hip fracture status post gamma nail placement
Condition: Good
Diet: No restrictions
Activity: As tolerated
Driving Restrictions: Not until seen by your Dr
Bathing Restrictions: None
Blood Work: None
Others Tests: Repeat x-ray in 4 weeks.
Other Services: VN and PT
Wound Care: Dressings intact for 7-10 days post-op.
[place] removed at 2 weeks post-op.
Activity Restrictions/Additional Instructions:
Schedule follow-up appointment with family doctor, should be seen within 1 to 2 weeks of discharge from the hospital
Follow-up in office with orthopedics
Referrals:
Brennen Molina MD [Active] - in two weeks (Call [phone] to schedule a 2 week post op appt with [place])
Violeta Guajardo MD [Family Provider] -
Additional Discharge Medication Instructions: Take aspirin 325 mg daily for 1 month
Take oxycodone 5 mg every 4 hours as needed for a pain, call your family doctor or orthopedist if you need extension of oxycodone
Prescriptions:
New
aspirin 325 mg Tablet
325 mg PO DAILY 30 Days Qty: 30 0RF
oxycodone 5 mg Tablet
5 mg PO Q4HPRN PRN (Reason: pain) 5 Days Qty: 30 0RF
Continued
glucosamine sulfate [Glucosamine] 500 mg Tablet
500 mg PO DAILY
therapeutic multivitamin Tablet
1 tab PO DAILY
amlodipine 5 mg Tablet
5 mg PO DAILY
cholecalciferol (vitamin D3) [Vitamin D3] 25 mcg (1,000 unit) Tablet
25 mcg PO DAILY
Discharge Orders:
Discharge Patient (As Directed); Ordered 03/23/24
Ordered By: Zoltan Albarado
Discharge Date and Time
Discharge Date/Time: 03/23/24 13:30
Print Language: [place]
== END 2024-03-23 13:30 | disposition home health service (06) | DRG 482 ==
LOC: 2 SOUTH 23:55
PROVIDERS: Physician Assistant; Physician Assistant Surgical; ADMITTING PHYSICIAN Internal Medicine; ATTENDING PHYSICIAN Internal Medicine; CONSULT PHYSICIAN Orthopaedic Surgery; EMERGENCY PHYSICIAN Emergency Medicine; FAMILY PHYSICIAN Internal Medicine
PROC: 0QS604Z Reposition Right Upper Femur with Internal Fixation Device, Open Approach (ICD-10-PCS; 2024-03-20)
DX: S72.145A Nondisplaced intertrochanteric fracture of left femur, initial encounter for closed fracture (principal); W11.XXXA Fall on and from ladder, initial encounter; I10 Essential (primary) hypertension; Z85.3 Personal history of malignant neoplasm of breast; Z87.891 Personal history of nicotine dependence; Z92.3 Personal history of irradiation
CPT/HCPCS: 73502; 76000; 80048; 80053; 85025; 85027; 86850; 86900; 86901; 93005; 97116; 97163; 97166; 97530; 99285

== ENCOUNTER → 2024-12-29 14:35 | Outpatient (REF) | payer OTHER, SELFPAY | LOC: WDC 14:35 | PROVIDERS: ATTENDING PHYSICIAN Internal Medicine | DX: Z12.31 Encounter for screening mammogram for malignant neoplasm of breast (principal) | CPT/HCPCS: 77063; 77067 ==